=== PATIENT | male | born 1990 | race Asian ===

== ENCOUNTER 2020-06-18 00:21 | Emergency (ER) | payer SELFPAY ==
[~2020-06-18] VITALS: Ht 172.7 cm; Wt 74.8 kg
[2020-06-18 00:51] VITALS: BP 150/78
== END 2020-06-18 06:02 | disposition left against medical advice (07) ==
LOC: ER 00:21
DX: S81.812A Laceration without foreign body, left lower leg, initial encounter (principal); Z53.21 Procedure and treatment not carried out due to patient leaving prior to being seen by health care provider; W26.8XXA Contact with other sharp object(s), not elsewhere classified, initial encounter; Y93.89 Activity, other specified; Y92.89 Other specified places as the place of occurrence of the external cause; Y99.8 Other external cause status
CPT/HCPCS: 73590